=== PATIENT | female | born 1940 | race African-American/Black ===

== ENCOUNTER 2017-06-21 07:43 | Emergency (ER) | payer MEDICARE, MEDICAID ==
[~2017-06-21] VITALS: Ht 165.1 cm; Wt 93.0 kg
[~2017-06-21 07:43] MED LIST: AMLO10TA80 PO; FURO40TA5 PO; METF500T4 PO; POTA10TA15 PO; ROSU5TAB PO
[2017-06-21 09:20] LABS: BASOPHILS % 1.4 % (0.0-2.0); EOSINOPHILS % 4.9 % (0.0-5.0); HEMATOCRIT. 39.4 % (36.0-48.0); HEMOGLOBIN. 13.1 g/dL (12.0-16.0); LYMPHOCYTES % 47.1 % (20.0-50.0); MEAN CORPUSCULAR HEMOGLOBIN 31.6 pg (28.0-32.0); MEAN CORPUSCULAR VOLUME 95.2 fL (81.0-99.0); MONOCYTES % 7.6 % (2.0-8.0); PLATELET 232 x1000/uL (130-400); RED BLOOD CELL COUNT 4.13 mill/uL (4.2-5.4)
[2017-06-21 09:23] LABS: CHLORIDE 104 mEq/L (98-107); PROTHROMBIN TIME 10.7 sec (9.4-11.6)
[2017-06-21 09:30] LABS: CARBON DIOXIDE 30 mEq/L (21-32)
[2017-06-21] MEDS ORDERED: ONDANSETRON 4MG ODT PO PRN (11:45)
[2017-06-21] MEDS ORDERED: MORPHINE SULFATE 4 MG/ML CPJ (NOT FOR IM USE) IV PRN (11:45)
[2017-06-21] MEDS ORDERED: ASPIRIN 325MG EC TABLET PO ONE (11:45)
[2017-06-21 12:52] VITALS: BP 144/77
== END 2017-06-21 13:06 | disposition home or self-care (01) ==
LOC: ER 09:24
DX: M54.10 Radiculopathy, site unspecified (principal); R53.1 Weakness; I10 Essential (primary) hypertension; E11.9 Type 2 diabetes mellitus without complications; E78.00 Pure hypercholesterolemia, unspecified; Z86.73 Personal history of transient ischemic attack (TIA), and cerebral infarction without residual deficits
CPT/HCPCS: 36415; 70450; 80053; 85025; 85610; 93005; 96374; 99285; J2270; Q0162

== ENCOUNTER 2018-09-02 06:40 | Inpatient (IN) | payer MEDICARE, MEDICAID ==
[~2018-09-02] VITALS: Ht 165.1 cm; Wt 94.3 kg
[~2018-09-02 06:40] MED LIST changes: +METF-414 PO; -METF500T4 PO
[2018-09-02] MEDS ORDERED: MORPHINE SULFATE 4 MG/ML CPJ (NOT FOR IM USE) IV STA (08:40)
[2018-09-02] MEDS ORDERED: ONDANSETRON HCL 4MG/2ML INJ IV STA (08:40)
[2018-09-02] MEDS ORDERED: ASPIRIN 81MG TABLET PO ONE (08:45)
[2018-09-02 09:21] LABS: BASOPHILS % 1.2 % (0.0-2.0); EOSINOPHILS % 2.1 % (0.0-5.0); HEMATOCRIT. 38.2 % (36.0-48.0); HEMOGLOBIN. 12.6 g/dL (12.0-16.0); LYMPHOCYTES % 35.5 % (20.0-50.0); MEAN CORPUSCULAR VOLUME 97.1 fL (81.0-99.0); MEAN PLATELET VOLUME 8.3 fl (7.4-10.4); MONOCYTES % 8.6 % (2.0-8.0); NEUTROPHILS % 52.6 % (40.0-76.0); PLATELET 226 x1000/uL (130-400); RED BLOOD CELL COUNT 3.94 mill/uL (4.2-5.4); RED CELL DISTRIBUTION WIDTH 13.9 % (11.6-14.6)
[2018-09-02 09:27] LABS: CHLORIDE 103 mEq/L (98-107)
[2018-09-02 09:30] LABS: PARTIAL THROMBOPLASTIN TIME 24.3 sec (23.4-31.0); PROTHROMBIN TIME 10.4 sec (9.1-11.1)
[2018-09-02 09:31] LABS: CLARITY URINE CLEAR (CLEAR); COLOR URINE YELLOW (YELLOW); KETONES URINE NEGATIVE (NEGATIVE); LEUKOCYTE ESTERASE URINE NEGATIVE (NEGATIVE); NITRITE URINE NEGATIVE (NEGATIVE); OCCULT BLOOD URINE NEGATIVE (NEGATIVE); PROTEIN URINE NEGATIVE (NEGATIVE); SPECIFIC GRAVITY URINE 1.012 (1.005-1.030); UROBILINOGEN URINE 0.2 E.U./dL (0.2-1.0)
[2018-09-02] MEDS ORDERED: CLONIDINE 0.1MG TABLET PO PRN (13:30)
[2018-09-02] MEDS ORDERED: ONDANSETRON HCL 4MG/2ML INJ IV PRN (13:30)
[2018-09-02 15:46] VITALS: BP 116/56
[2018-09-02] MEDS ORDERED: MORPHINE SULFATE 4 MG/ML CPJ (NOT FOR IM USE) IV PRN (16:15)
[2018-09-02] MEDS: METFORMIN HCL 500MG TABLET PO SCH (17:31)
[2018-09-02] MEDS ORDERED: DEXTROSE 50% WATER 50ML SYRINGE IV PRN (18:30)
[2018-09-02] MEDS ORDERED: ATEN50TA MT (19:41)
[2018-09-02] MEDS ORDERED: NAPR-681 MT (19:41)
[2018-09-02] MEDS ORDERED: HYDR-4001 PO (19:41)
[2018-09-02 20:00] VITALS: BP 120/60
[2018-09-02] MEDS: INSULIN LISPRO 100 UNITS/ML SUBCUT SCH (21:00)
[2018-09-02] MEDS: BLOOD SUGAR DIAGNOSTIC STRIP TEST SCH (21:00)
[2018-09-02] MEDS: ATORVASTATIN CALCIUM 20MG TABLET PO SCH (21:27)
[2018-09-02] MEDS: ENOXAPARIN 30MG/0.3ML SYR SUBCUT SCH (21:28)
[2018-09-03] VITALS: BP 97/57
[2018-09-03 04:00] VITALS: BP 111/51
[2018-09-03] MEDS: PANTOPRAZOLE 40MG DR TABLET PO SCH (05:40)
[2018-09-03] MEDS: BLOOD SUGAR DIAGNOSTIC STRIP TEST SCH ×4 (05:41→21:31)
[2018-09-03] MEDS: INSULIN LISPRO 100 UNITS/ML SUBCUT SCH ×4 (05:41→21:00)
[2018-09-03 06:09] LABS: BASOPHILS % 1.3 % (0.0-2.0); EOSINOPHILS % 2.7 % (0.0-5.0); HEMATOCRIT. 38.2 % (36.0-48.0); HEMOGLOBIN. 12.8 g/dL (12.0-16.0); LYMPHOCYTES % 45.6 % (20.0-50.0); MEAN CORPUSCULAR HEMOGLOBIN 32.8 pg (28.0-32.0); MEAN CORPUSCULAR VOLUME 97.9 fL (81.0-99.0); MEAN PLATELET VOLUME 8.5 fl (7.4-10.4); MONOCYTES % 7.3 % (2.0-8.0); NEUTROPHILS % 43.1 % (40.0-76.0); PLATELET 224 x1000/uL (130-400)
[2018-09-03 06:20] LABS: CHLORIDE 102 mEq/L (98-107)
[2018-09-03 06:28] LABS: HDL CHOLESTEROL 46 mg/dL (40-59); LDL CHOLESTEROL 125 mg/dL (5-100)
[2018-09-03] MEDS: METFORMIN HCL 500MG TABLET PO SCH ×2 (07:40→16:45)
[2018-09-03 08:00] VITALS: BP 108/58
[2018-09-03] MEDS ORDERED: AMLODIPINE 10MG TABLET PO SCH (09:00)
[2018-09-03] MEDS: ATENOLOL 50 MG TABLET PO SCH (09:08)
[2018-09-03] MEDS: ENOXAPARIN 30MG/0.3ML SYR SUBCUT SCH ×2 (09:08→21:26)
[2018-09-03] MEDS: AMLODIPINE 10MG TABLET PO SCH (09:08)
[2018-09-03] MEDS: DOCUSATE SODIUM 250MG CAPSULE PO SCH (09:15)
[2018-09-03] MEDS ORDERED: REGADENOSON 0.4 MG/5 ML IV SCH (11:45)
[2018-09-03] MEDS: ACETAMINOPHEN 325MG TABLET PO PRN (11:53)
[2018-09-03 12:00] VITALS: BP 127/56
[2018-09-03 16:00] VITALS: BP 133/64
[2018-09-03] MEDS ORDERED: METFORMIN HCL 500MG TABLET PO SCH (17:15)
[2018-09-03 20:00] VITALS: BP 131/68
[2018-09-03] MEDS: ATORVASTATIN CALCIUM 20MG TABLET PO SCH (21:26)
[2018-09-04] VITALS: BP 123/60
[2018-09-04 04:00] VITALS: BP 94/64
[2018-09-04 04:57] LABS: *AMPHETAMINES SCREEN URINE NEGATIVE (NEGATIVE); *BARBITURATES SCREEN URINE NEGATIVE (NEGATIVE); *BENZODIAZEPINES SCREEN URINE NEGATIVE (NEGATIVE); *COCAINE SCREEN URINE NEGATIVE (NEGATIVE); METHADONE URINE SCREEN NEGATIVE (NEGATIVE); OPIATES URINE SCREEN NEGATIVE (NEGATIVE)
[2018-09-04 04:58] LABS: CANNABINOID URINE SCREEN NEGATIVE (NEGATIVE); PHENCYCLIDINE URINE SCREEN NEGATIVE (NEGATIVE)
[2018-09-04] MEDS: BLOOD SUGAR DIAGNOSTIC STRIP TEST SCH ×2 (05:39→11:45)
[2018-09-04] MEDS: INSULIN LISPRO 100 UNITS/ML SUBCUT SCH ×2 (05:39→12:20)
[2018-09-04] MEDS: PANTOPRAZOLE 40MG DR TABLET PO SCH (05:40)
[2018-09-04 06:25] LABS: CHLORIDE 103 mEq/L (98-107)
[2018-09-04 06:31] LABS: BASOPHILS % 1.2 % (0.0-2.0); EOSINOPHILS % 2.9 % (0.0-5.0); HEMATOCRIT. 38.6 % (36.0-48.0); HEMOGLOBIN. 12.9 g/dL (12.0-16.0); LYMPHOCYTES % 39.3 % (20.0-50.0); MEAN CORPUSCULAR HEMOGLOBIN 32.3 pg (28.0-32.0); MEAN PLATELET VOLUME 8.7 fl (7.4-10.4); MONOCYTES % 7.5 % (2.0-8.0); NEUTROPHILS % 49.1 % (40.0-76.0); PLATELET 231 x1000/uL (130-400); RED BLOOD CELL COUNT 3.98 mill/uL (4.2-5.4); RED CELL DISTRIBUTION WIDTH 13.4 % (11.6-14.6)
[2018-09-04] MEDS: METFORMIN HCL 500MG TABLET PO SCH (07:15)
[2018-09-04 08:00] VITALS: BP 126/61
[2018-09-04] MEDS: AMLODIPINE 10MG TABLET PO SCH (08:20)
[2018-09-04] MEDS: ATENOLOL 50 MG TABLET PO SCH (08:21)
[2018-09-04] MEDS: DOCUSATE SODIUM 250MG CAPSULE PO SCH (08:32)
[2018-09-04] MEDS: ENOXAPARIN 30MG/0.3ML SYR SUBCUT SCH (08:32)
[2018-09-04] MEDS ORDERED: LACTULOSE 20G/30ML UDC PO SCH (09:00)
[2018-09-04] MEDS ORDERED: REGADENOSON 0.4 MG/5 ML IV ONE (09:51)
[2018-09-04 12:00] VITALS: BP 118/55
[2018-09-04] MEDS: ACETAMINOPHEN 325MG TABLET PO PRN (12:20)
[2018-09-04 12:55] VITALS: BP 126/61
== END 2018-09-04 13:30 | disposition home or self-care (01) | DRG 391 ==
LOC: ER 11:14 → EDBEDREQ 13:33 → ENRESERV 14:08 → 5WST 15:24
PROVIDERS: ADMIT Internal Medicine Geriatric Medicine; ATTEND Internal Medicine Geriatric Medicine
DX: K21.9 Gastro-esophageal reflux disease without esophagitis (principal); J98.51 Mediastinitis; I69.354 Hemiplegia and hemiparesis following cerebral infarction affecting left non-dominant side; E03.9 Hypothyroidism, unspecified; E78.00 Pure hypercholesterolemia, unspecified; I10 Essential (primary) hypertension; I49.1 Atrial premature depolarization; E11.69 Type 2 diabetes mellitus with other specified complication; J44.9 Chronic obstructive pulmonary disease, unspecified; M19.90 Unspecified osteoarthritis, unspecified site; M48.02 Spinal stenosis, cervical region; M54.12 Radiculopathy, cervical region; K59.00 Constipation, unspecified; Z90.49 Acquired absence of other specified parts of digestive tract; Z79.84 Long term (current) use of oral hypoglycemic drugs; Z79.899 Other long term (current) drug therapy; Z82.49 Family history of ischemic heart disease and other diseases of the circulatory system; E78.5 Hyperlipidemia, unspecified; F41.1 Generalized anxiety disorder
CPT/HCPCS: 36415; 71045; 78452; 78582; 80048; 80061; 80305; 82962; 83036; 83735; 83880; 84484; 93005; 93017; 93306; 93970; 96374; 97162; 97165; 99285; A9500; A9558; J1650; J1815; J2270; J2405; J2785

== ENCOUNTER → 2019-01-24 | Outpatient (CLI) | payer MEDICARE, MEDICAID ==
[~2019-01-24] MED LIST changes: +ATEN50TA MT; +HYDR-4001 PO; +NAPR-681 MT; -ROSU5TAB PO
== END | disposition home or self-care (01) ==
LOC: RAD 13:27
PROVIDERS: ATTEND Internal Medicine Geriatric Medicine
DX: M79.605 Pain in left leg (principal); R60.9 Edema, unspecified
CPT/HCPCS: 93970

== ENCOUNTER 2021-06-28 10:24 | Inpatient (IN) | payer MEDICARE, MEDICAID ==
[~2021-06-28] VITALS: Ht 165.1 cm; Wt 96.6 kg
[~2021-06-28 10:24] MED LIST changes: +TRANEXAMIC ACID 1,000 MG in SODIUM CHLORIDE 0.9% 100 ML IV NR
[2021-06-28] MEDS ORDERED: EPINEPHRINE 1:1000 1 MG/ML AMP ONE (10:54)
[2021-06-28] MEDS ORDERED: KETOROLAC 30MG/ML VIAL ONE ×2 (10:54→14:55)
[2021-06-28] MEDS ORDERED: MORPHINE SULFATE 10 MG/ML CPJ ONE (10:54)
[2021-06-28] MEDS ORDERED: ROPIVACAINE HCL 10MG/ML 20 ML VIAL EPI ONE (10:54)
[2021-06-28] MEDS ORDERED: VANCOMYCIN HCL 1 GM/VIAL ONE (10:55)
[2021-06-28] MEDS ORDERED: POLYMYXIN B SULFATE 500000 UNITS/VIAL ONE (10:55)
[2021-06-28] MEDS ORDERED: MONT10TA32 PO (13:07)
[2021-06-28] MEDS ORDERED: TOPUD PO (13:07)
[2021-06-28] MEDS ORDERED: ATROV INH (13:07)
[2021-06-28] MEDS ORDERED: MIDAZOLAM HCL 2 MG/2 ML VIAL ONE (13:11)
[2021-06-28] MEDS ORDERED: PROPOFOL 10MG/ML 100ML 100 ML IV ONE (13:22)
[2021-06-28 13:33] LABS: CLARITY URINE CLEAR (CLEAR); COLOR URINE YELLOW (YELLOW); KETONES URINE NEGATIVE (NEGATIVE); LEUKOCYTE ESTERASE URINE NEGATIVE (NEGATIVE); NITRITE URINE NEGATIVE (NEGATIVE); OCCULT BLOOD URINE NEGATIVE (NEGATIVE); PH URINE 7.5 (4.5-8.0); PROTEIN URINE NEGATIVE (NEGATIVE); SPECIFIC GRAVITY URINE 1.014 (1.005-1.030); UROBILINOGEN URINE 0.2 E.U./dL (0.2-1.0)
[2021-06-28] MEDS ORDERED: DEXAMETHASONE 4MG/ML 1ML VIAL ONE (14:56)
[2021-06-28] MEDS ORDERED: ONDANSETRON HCL 4MG/2ML INJ ONE (14:56)
[2021-06-28] MEDS ORDERED: FENTANYL CITRATE/PF 50MCG/ML 2ML VIAL ONE (15:01)
[2021-06-28] MEDS ORDERED: CEFAZOLIN 1000MG PREMIX 50 ML IV SCH (15:15)
[2021-06-28] MEDS ORDERED: ONDANSETRON HCL 4MG/2ML INJ IV PRN ×2 (15:15→15:30)
[2021-06-28] MEDS ORDERED: HYDROCODONE/ACETAMINOPHEN 5/325MG TABLET PO PRN (15:15)
[2021-06-28] MEDS ORDERED: HYDROMORPHONE HCL/PF 2MG/ML CPJ IV PRN (15:30)
[2021-06-28] MEDS ORDERED: FENTANYL CITRATE/PF 50MCG/ML 2ML VIAL IV PRN (15:30)
[2021-06-28] MEDS ORDERED: NALOXONE HCL 0.4MG/ML VIAL IV PRN (15:30)
[2021-06-28 17:00] VITALS: BP 146/65
[2021-06-28] MEDS: KETOROLAC 30MG/ML VIAL IV PRN (17:11)
[2021-06-28 17:30] VITALS: BP 145/65
[2021-06-28] MEDS ORDERED: ASPI-986 PO (18:00)
[2021-06-28] MEDS: SENNOSIDES/DOCUSATE SOD 8.6/50MG TABLET PO SCH (19:15)
[2021-06-28 20:00] VITALS: BP 126/70
[2021-06-28] MEDS: HYDROCODONE/ACETAMINOPHEN 10/325MG TABLET PO PRN (21:21)
[2021-06-28] MEDS: CEFAZOLIN 1000MG PREMIX 50 ML IV SCH (21:24)
[2021-06-29] VITALS: BP 112/52
[2021-06-29] MEDS: KETOROLAC 30MG/ML VIAL IV PRN ×2 (00:13→09:06)
[2021-06-29 04:00] VITALS: BP 131/62
[2021-06-29] MEDS: CEFAZOLIN 1000MG PREMIX 50 ML IV SCH ×3 (04:37→22:30)
[2021-06-29] MEDS: HYDROCODONE/ACETAMINOPHEN 10/325MG TABLET PO PRN ×3 (04:44→21:15)
[2021-06-29 07:27] LABS: BASOPHILS % 0.2 % (0.0-2.0); HEMATOCRIT. 33.3 % (36.0-48.0); HEMOGLOBIN. 11.1 g/dL (12.0-16.0); LYMPHOCYTES % 12.2 % (20.0-50.0); MEAN CORPUSCULAR HEMOGLOBIN 32.5 pg (28.0-32.0); MEAN CORPUSCULAR VOLUME 97.5 fL (81.0-99.0); MEAN PLATELET VOLUME 9.1 fl (7.4-10.4); MONOCYTES % 5.4 % (2.0-8.0); NEUTROPHILS % 82.2 % (40.0-76.0); PLATELET 223 x1000/uL (130-400); RED BLOOD CELL COUNT 3.42 mill/uL (4.2-5.4); RED CELL DISTRIBUTION WIDTH 13.9 % (11.6-14.6)
[2021-06-29 08:00] VITALS: BP 123/62
[2021-06-29 08:06] LABS: CHLORIDE 106 mEq/L (98-107)
[2021-06-29] MEDS ORDERED: ATENOLOL 100 MG TABLET PO SCH (09:00)
[2021-06-29] MEDS ORDERED: ATENOLOL 50 MG TABLET PO SCH (09:00)
[2021-06-29] MEDS: FUROSEMIDE 40MG TABLET PO SCH (09:05)
[2021-06-29] MEDS: SENNOSIDES/DOCUSATE SOD 8.6/50MG TABLET PO SCH ×2 (09:05→17:40)
[2021-06-29] MEDS: METFORMIN HCL 500MG TABLET PO SCH (09:44)
[2021-06-29] MEDS: ATENOLOL 50 MG TABLET PO SCH (09:44)
[2021-06-29 12:00] VITALS: BP 109/52
[2021-06-29 16:00] VITALS: BP 102/49
[2021-06-29 20:00] VITALS: BP 127/61
[2021-06-29] MEDS: ASPIRIN 81MG TABLET PO SCH (21:06)
[2021-06-30] VITALS: BP 109/64
[2021-06-30] MEDS: CEFAZOLIN 1000MG PREMIX 50 ML IV SCH ×3 (03:28→21:15)
[2021-06-30 04:00] VITALS: BP 152/89
[2021-06-30] MEDS: HYDROCODONE/ACETAMINOPHEN 10/325MG TABLET PO PRN ×4 (05:34→21:16)
[2021-06-30 08:00] VITALS: BP 106/53
[2021-06-30] MEDS: ASPIRIN 81MG TABLET PO SCH ×2 (08:43→21:15)
[2021-06-30] MEDS: ATENOLOL 50 MG TABLET PO SCH (08:44)
[2021-06-30] MEDS: METFORMIN HCL 500MG TABLET PO SCH (08:44)
[2021-06-30] MEDS: SENNOSIDES/DOCUSATE SOD 8.6/50MG TABLET PO SCH ×2 (08:44→16:38)
[2021-06-30] MEDS: FUROSEMIDE 40MG TABLET PO SCH (08:44)
[2021-06-30 12:00] VITALS: BP 141/59
[2021-06-30 16:00] VITALS: BP 138/58
[2021-06-30 20:00] VITALS: BP 129/63
[2021-07-01] VITALS: BP 88/55
[2021-07-01] MEDS: HYDROCODONE/ACETAMINOPHEN 10/325MG TABLET PO PRN ×4 (03:48→21:32)
[2021-07-01 04:00] VITALS: BP 103/42
[2021-07-01] MEDS ORDERED: *PATIENT'S OWN MEDICATION STORAGE XX SCH (05:30)
[2021-07-01 08:00] VITALS: BP 130/64
[2021-07-01] MEDS: METFORMIN HCL 500MG TABLET PO SCH (09:06)
[2021-07-01] MEDS: SENNOSIDES/DOCUSATE SOD 8.6/50MG TABLET PO SCH ×2 (09:06→17:23)
[2021-07-01] MEDS: ASPIRIN 81MG TABLET PO SCH ×2 (09:06→21:31)
[2021-07-01] MEDS: ATENOLOL 50 MG TABLET PO SCH (09:06)
[2021-07-01] MEDS: FUROSEMIDE 40MG TABLET PO SCH (09:06)
[2021-07-01 12:00] VITALS: BP 128/54
[2021-07-01 16:00] VITALS: BP 144/62
[2021-07-01 20:00] VITALS: BP 121/55
[2021-07-02] VITALS: BP 105/66
[2021-07-02] MEDS: HYDROCODONE/ACETAMINOPHEN 10/325MG TABLET PO PRN ×3 (03:58→20:49)
[2021-07-02 04:00] VITALS: BP 106/63
[2021-07-02 08:00] VITALS: BP 99/57
[2021-07-02] MEDS: FUROSEMIDE 40MG TABLET PO SCH (08:34)
[2021-07-02] MEDS: ASPIRIN 81MG TABLET PO SCH ×2 (08:34→20:47)
[2021-07-02] MEDS: METFORMIN HCL 500MG TABLET PO SCH (08:35)
[2021-07-02] MEDS: ATENOLOL 50 MG TABLET PO SCH (08:35)
[2021-07-02] MEDS: SENNOSIDES/DOCUSATE SOD 8.6/50MG TABLET PO SCH ×2 (08:35→16:06)
[2021-07-02 12:00] VITALS: BP 128/54
[2021-07-02 16:00] VITALS: BP 138/63
[2021-07-02 20:00] VITALS: BP 102/59
[2021-07-03] VITALS: BP 111/49
[2021-07-03 04:10] VITALS: BP 135/77
[2021-07-03 08:00] VITALS: BP 134/60
[2021-07-03] MEDS: ASPIRIN 81MG TABLET PO SCH ×2 (10:07→21:15)
[2021-07-03] MEDS: SENNOSIDES/DOCUSATE SOD 8.6/50MG TABLET PO SCH ×2 (10:07→17:52)
[2021-07-03] MEDS: FUROSEMIDE 40MG TABLET PO SCH (10:08)
[2021-07-03] MEDS: ATENOLOL 50 MG TABLET PO SCH (10:08)
[2021-07-03] MEDS: METFORMIN HCL 500MG TABLET PO SCH (10:09)
[2021-07-03] MEDS: HYDROCODONE/ACETAMINOPHEN 10/325MG TABLET PO PRN ×2 (10:10→21:15)
[2021-07-03 12:00] VITALS: BP 123/58
[2021-07-03 20:00] VITALS: BP 128/55
[2021-07-03] MEDS ORDERED: HYDROCODONE/ACETAMINOPHEN 10/325MG TABLET PO PRN (20:30)
[2021-07-04] VITALS: BP 114/57
[2021-07-04 04:00] VITALS: BP 149/72
[2021-07-04] MEDS: HYDROCODONE/ACETAMINOPHEN 10/325MG TABLET PO PRN (04:17)
[2021-07-04 08:00] VITALS: BP 115/60
[2021-07-04] MEDS: ASPIRIN 81MG TABLET PO SCH (09:18)
[2021-07-04] MEDS: FUROSEMIDE 40MG TABLET PO SCH (09:18)
[2021-07-04] MEDS: METFORMIN HCL 500MG TABLET PO SCH (09:18)
[2021-07-04] MEDS: ATENOLOL 50 MG TABLET PO SCH (09:19)
[2021-07-04] MEDS: SENNOSIDES/DOCUSATE SOD 8.6/50MG TABLET PO SCH (09:19)
[2021-07-04 12:00] VITALS: BP 128/52
[2021-07-04 12:12] VITALS: BP 118/60
== END 2021-07-04 14:29 | disposition home health service (06) | DRG 470 ==
LOC: OR 10:24 → 6EST 17:55
PROC: 0SRD0J9 Replacement of Left Knee Joint with Synthetic Substitute, Cemented, Open Approach (ICD-10-PCS; principal; 2021-06-28)
DX: M17.12 Unilateral primary osteoarthritis, left knee (principal); G89.29 Other chronic pain; I10 Essential (primary) hypertension; E78.5 Hyperlipidemia, unspecified; E11.59 Type 2 diabetes mellitus with other circulatory complications; I49.9 Cardiac arrhythmia, unspecified; M48.07 Spinal stenosis, lumbosacral region; Z20.828 Contact with and (suspected) exposure to other viral communicable diseases; M54.17 Radiculopathy, lumbosacral region; M75.02 Adhesive capsulitis of left shoulder
CPT/HCPCS: 36415; 71045; 73562; 80048; 80053; 81003; 82962; 85025; 86850; 86900; 86920; 87426; 88305; 88311; 93005; 97110; 97116; 97162; 97166; 97530; C1713; C1776; C1893; J0690; J1100; J1885; J2250; J2270; J2405; J2704; J2795; J3010; J3370; J3490; J7050; L1830

== ENCOUNTER → 2021-07-21 | Outpatient (CLI) | payer MEDICARE, MEDICAID ==
[~2021-07-21] MED LIST changes: +ASPI-986 PO; +ATROV INH; +MONT10TA32 PO; +TOPUD PO; -TRANEXAMIC ACID 1,000 MG in SODIUM CHLORIDE 0.9% 100 ML IV NR
== END | disposition home or self-care (01) ==
LOC: RAD 11:31
PROVIDERS: ATTEND Internal Medicine Geriatric Medicine
DX: R22.43 Localized swelling, mass and lump, lower limb, bilateral (principal)
CPT/HCPCS: 93970

== ENCOUNTER 2022-01-22 13:27 | Inpatient (IN) | payer MEDICARE, MEDICAID ==
[~2022-01-22] VITALS: Ht 165.1 cm; Wt 88.7 kg
[2022-01-22 14:51] LABS: CHLORIDE 105 mEq/L (98-107)
[2022-01-22 14:57] LABS: BASOPHILS % 1.4 % (0.0-2.0); EOSINOPHILS % 1.3 % (0.0-5.0); HEMATOCRIT. 37.5 % (36.0-48.0); HEMOGLOBIN. 12.5 g/dL (12.0-16.0); LYMPHOCYTES % 34.7 % (20.0-50.0); MEAN CORPUSCULAR HEMOGLOBIN 31.8 pg (28.0-32.0); MEAN CORPUSCULAR VOLUME 95.6 fL (81.0-99.0); MEAN PLATELET VOLUME 8.6 fl (7.4-10.4); MONOCYTES % 7.3 % (2.0-8.0); NEUTROPHILS % 55.3 % (40.0-76.0); PLATELET 235 x1000/uL (130-400); RED BLOOD CELL COUNT 3.92 mill/uL (4.2-5.4); RED CELL DISTRIBUTION WIDTH 14.2 % (11.6-14.6)
[2022-01-22] MEDS ORDERED: MORPHINE SULFATE 2 MG/ML CPJ (NOT FOR IM USE) IV ONE (16:45)
[2022-01-22] MEDS ORDERED: ASPIRIN 325MG EC TABLET PO ONE (16:45)
[2022-01-22] MEDS ORDERED: ZOLPIDEM TARTRATE 5MG TABLET PO PRN (21:30)
[2022-01-22] MEDS ORDERED: ACETAMINOPHEN 325MG TABLET PO PRN (21:30)
[2022-01-22] MEDS ORDERED: NALOXONE HCL 0.4MG/ML VIAL IV PRN (21:45)
[2022-01-22] MEDS: GABAPENTIN 100MG CAPSULE PO SCH (23:27)
[2022-01-23] VITALS: BP_SYST 127; BP_DIAS 54; BP_DIAS 84
[2022-01-23 04:00] VITALS: BP 123/66
[2022-01-23 06:46] LABS: BASOPHILS % 1.4 % (0.0-2.0); CHLORIDE 109 mEq/L (98-107); HEMOGLOBIN. 11.3 g/dL (12.0-16.0); LYMPHOCYTES % 49.8 % (20.0-50.0); MEAN CORPUSCULAR HEMOGLOBIN 32.4 pg (28.0-32.0); MEAN CORPUSCULAR VOLUME 96.9 fL (81.0-99.0); MEAN PLATELET VOLUME 8.6 fl (7.4-10.4); MONOCYTES % 7.8 % (2.0-8.0); PLATELET 219 x1000/uL (130-400)
[2022-01-23 06:52] LABS: LDL CHOLESTEROL 112 mg/dL (5-100)
[2022-01-23] MEDS: GABAPENTIN 100MG CAPSULE PO SCH ×3 (06:54→21:04)
[2022-01-23 06:55] LABS: HDL CHOLESTEROL 46 mg/dL (40-59)
[2022-01-23] MEDS: OMEPRAZOLE 20MG CAPSULE EXTENDED RELEASE PO SCH ×2 (06:55→08:27)
[2022-01-23 08:00] VITALS: BP 136/68
[2022-01-23] MEDS: DOCUSATE SODIUM 250MG CAPSULE PO SCH (08:26)
[2022-01-23] MEDS: TRAMADOL HCL/ACETAMINOPHEN 37.5/325MG TABLET PO PRN ×2 (08:27→21:08)
[2022-01-23] MEDS: AMLODIPINE 5MG TABLET PO SCH ×2 (08:27→21:04)
[2022-01-23] MEDS: ASPIRIN 325MG EC TABLET PO SCH (08:27)
[2022-01-23] MEDS: FUROSEMIDE 20MG TABLET PO SCH (08:28)
[2022-01-23] MEDS ORDERED: REGADENOSON 0.4 MG/5 ML IV NR (08:30)
[2022-01-23] MEDS ORDERED: ASPIRIN 81MG EC TABLET PO SCH (09:00)
[2022-01-23] MEDS ORDERED: ATENOLOL 50 MG TABLET PO SCH ×2 (09:00)
[2022-01-23] MEDS ORDERED: ENOXAPARIN 30MG/0.3ML SYR SUBCUT NR (11:00)
[2022-01-23 11:37] VITALS: BP 114/53
[2022-01-23] MEDS: ATENOLOL 25MG TABLET PO SCH ×2 (12:13→21:00)
[2022-01-23 13:42] LABS: CLARITY URINE CLEAR (CLEAR); COLOR URINE YELLOW (YELLOW); KETONES URINE NEGATIVE (NEGATIVE); LEUKOCYTE ESTERASE URINE NEGATIVE (NEGATIVE); NITRITE URINE NEGATIVE (NEGATIVE); OCCULT BLOOD URINE NEGATIVE (NEGATIVE); PROTEIN URINE NEGATIVE (NEGATIVE); SPECIFIC GRAVITY URINE 1.011 (1.005-1.030); UROBILINOGEN URINE 0.2 E.U./dL (0.2-1.0)
[2022-01-23 15:55] VITALS: BP 118/57
[2022-01-23] MEDS ORDERED: MONTELUKAST SODIUM 10MG TABLET PO SCH (17:00)
[2022-01-23] MEDS: METFORMIN HCL 500MG TABLET PO SCH (17:38)
[2022-01-23 20:34] VITALS: BP 120/55
[2022-01-23] MEDS ORDERED: ATORVASTATIN CALCIUM 20MG TABLET PO SCH (21:00)
[2022-01-23] MEDS: NITROGLYCERIN 0.4MG TABLET SL SL PRN ×2 (22:25→23:15)
[2022-01-24] VITALS: BP 127/64
[2022-01-24 04:00] VITALS: BP 130/59
[2022-01-24] MEDS: GABAPENTIN 100MG CAPSULE PO SCH ×2 (06:00→12:42)
[2022-01-24 07:22] LABS: BASOPHILS % 1.3 % (0.0-2.0); EOSINOPHILS % 2.7 % (0.0-5.0); HEMATOCRIT. 35.4 % (36.0-48.0); HEMOGLOBIN. 11.7 g/dL (12.0-16.0); LYMPHOCYTES % 41.3 % (20.0-50.0); MEAN CORPUSCULAR HEMOGLOBIN 32.2 pg (28.0-32.0); MEAN CORPUSCULAR VOLUME 97.2 fL (81.0-99.0); MEAN PLATELET VOLUME 8.9 fl (7.4-10.4); MONOCYTES % 7.3 % (2.0-8.0); NEUTROPHILS % 47.4 % (40.0-76.0); PLATELET 222 x1000/uL (130-400); RED BLOOD CELL COUNT 3.64 mill/uL (4.2-5.4); RED CELL DISTRIBUTION WIDTH 14.3 % (11.6-14.6)
[2022-01-24 07:39] LABS: CHLORIDE 104 mEq/L (98-107)
[2022-01-24 08:00] VITALS: BP 127/64
[2022-01-24] MEDS ORDERED: REGADENOSON 0.4 MG/5 ML IV ONE (08:53)
[2022-01-24] MEDS ORDERED: ENOXAPARIN 30MG/0.3ML SYR SUBCUT SCH (09:00)
[2022-01-24] MEDS: METFORMIN HCL 500MG TABLET PO SCH (11:51)
[2022-01-24] MEDS: DOCUSATE SODIUM 250MG CAPSULE PO SCH (11:51)
[2022-01-24] MEDS: OMEPRAZOLE 20MG CAPSULE EXTENDED RELEASE PO SCH (11:51)
[2022-01-24] MEDS: AMLODIPINE 5MG TABLET PO SCH (11:51)
[2022-01-24] MEDS: FUROSEMIDE 20MG TABLET PO SCH (11:52)
[2022-01-24] MEDS: ASPIRIN 325MG EC TABLET PO SCH (11:52)
[2022-01-24] MEDS: ATENOLOL 25MG TABLET PO SCH (11:52)
[2022-01-24 12:00] VITALS: BP 131/67
== END 2022-01-24 14:30 | disposition home or self-care (01) | DRG 281 ==
LOC: ER 13:34 → EDBEDREQ 17:59 → ENRESERV 20:12 → 8WST 21:21
PROVIDERS: ADMIT Internal Medicine Geriatric Medicine; ATTEND Internal Medicine Geriatric Medicine
DX: I21.4 Non-ST elevation (NSTEMI) myocardial infarction (principal); I47.1 Supraventricular tachycardia; I25.110 Atherosclerotic heart disease of native coronary artery with unstable angina pectoris; D64.9 Anemia, unspecified; E11.65 Type 2 diabetes mellitus with hyperglycemia; E66.01 Morbid (severe) obesity due to excess calories; E78.00 Pure hypercholesterolemia, unspecified; E78.5 Hyperlipidemia, unspecified; J45.909 Unspecified asthma, uncomplicated; M17.12 Unilateral primary osteoarthritis, left knee; M54.12 Radiculopathy, cervical region; M54.16 Radiculopathy, lumbar region; Z96.652 Presence of left artificial knee joint; Z20.822 Contact with and (suspected) exposure to COVID-19; K21.9 Gastro-esophageal reflux disease without esophagitis; I87.2 Venous insufficiency (chronic) (peripheral); I25.2 Old myocardial infarction; Z79.82 Long term (current) use of aspirin; Z79.84 Long term (current) use of oral hypoglycemic drugs; Z86.73 Personal history of transient ischemic attack (TIA), and cerebral infarction without residual deficits; Z79.899 Other long term (current) drug therapy
CPT/HCPCS: 36415; 71045; 78452; 80048; 80053; 80061; 81003; 82270; 83036; 83880; 84443; 84484; 85025; 85379; 87426; 93005; 93017; 93306; 93971; 99285; A9500; J1650; J2270; J2785

== ENCOUNTER 2022-05-11 17:04 | Emergency (ER) | payer MEDICARE, MEDICAID ==
[~2022-05-11] VITALS: Ht 165.1 cm; Wt 97.0 kg
[~2022-05-11 17:04] MED LIST changes: +MONT-39 PO; -MONT10TA32 PO
[2022-05-11 17:17] VITALS: BP 158/82
== END 2022-05-12 01:27 | disposition left against medical advice (07) ==
LOC: ER 17:04
DX: Z53.21 Procedure and treatment not carried out due to patient leaving prior to being seen by health care provider (principal)
CPT/HCPCS: 82962

== ENCOUNTER → 2023-02-24 | Day surgery (SDC) | payer MEDICARE, MEDICAID ==
[~2023-02-24] VITALS: Ht 165.1 cm; Wt 98.0 kg
[~2023-02-24] MED LIST changes: +ASPI-1497 PO; +DEXAMETHASONE 4MG/ML 1ML VIAL ONE; +FENTANYL CITRATE/PF 50MCG/ML 2ML VIAL ONE; +HYDROMORPHONE HCL/PF 2MG/ML CPJ IV PRN; +IBUPROFEN 600MG TABLET PO NR; +LABETALOL 5MG/ML SYR 20 MG/4 ML SYRINGE IV PRN; +LIDOCAINE HCL 1% 10 MG/ML 10ML VIAL ONE; +MEPERIDINE HCL/PF 25MG/ML CPJ IV PRN; +MIDAZOLAM HCL 2 MG/2 ML VIAL ONE; +ONDANSETRON HCL 4MG/2ML INJ IV PRN; +ONDANSETRON HCL 4MG/2ML INJ ONE; +PROPOFOL 200MG/20ML VIAL IV ONE; +SODIUM CHLORIDE 0.9% 1,000 ML IV SCH
[2023-02-24 07:21] LABS: CLARITY URINE CLOUDY (CLEAR); COLOR URINE YELLOW (YELLOW); KETONES URINE NEGATIVE (NEGATIVE); LEUKOCYTE ESTERASE URINE 3+ (NEGATIVE); NITRITE URINE POSITIVE (NEGATIVE); OCCULT BLOOD URINE TRACE (NEGATIVE); PH URINE 7.5 (4.5-8.0); PROTEIN URINE NEGATIVE (NEGATIVE); SPECIFIC GRAVITY URINE 1.009 (1.005-1.030); UROBILINOGEN URINE 0.2 E.U./dL (0.2-1.0)
[2023-02-24 07:26] LABS: BASOPHILS % 1.9 % (0.0-2.0); EOSINOPHILS % 3.2 % (0.0-5.0); HEMATOCRIT. 36.3 % (36.0-48.0); HEMOGLOBIN. 11.8 g/dL (12.0-16.0); LYMPHOCYTES % 37.1 % (20.0-50.0); MEAN CORPUSCULAR HEMOGLOBIN 31.6 pg (28.0-32.0); MONOCYTES % 7.3 % (2.0-8.0); NEUTROPHILS % 50.5 % (40.0-76.0); PLATELET 262 x1000/uL (130-400); RED BLOOD CELL COUNT 3.74 mill/uL (4.2-5.4); RED CELL DISTRIBUTION WIDTH 13.8 % (11.6-14.6)
[2023-02-24 07:33] LABS: UCG SCREEN NEGATIVE
[2023-02-24 07:41] LABS: PARTIAL THROMBOPLASTIN TIME 25.8 sec (23.4-31.0); PROTHROMBIN TIME 10.9 sec (9.6-11.0)
[2023-02-24 07:45] LABS: CHLORIDE 105 mEq/L (98-107)
[2023-02-24 12:07] VITALS: BP 129/76
== END | disposition home or self-care (01) ==
LOC: OR 06:38
PROVIDERS: ATTEND Obstetrics & Gynecology Obstetrics
DX: N84.0 Polyp of corpus uteri (principal); I25.10 Atherosclerotic heart disease of native coronary artery without angina pectoris; I10 Essential (primary) hypertension; E78.00 Pure hypercholesterolemia, unspecified; E11.9 Type 2 diabetes mellitus without complications; J44.9 Chronic obstructive pulmonary disease, unspecified; M81.0 Age-related osteoporosis without current pathological fracture; Z79.82 Long term (current) use of aspirin; Z79.84 Long term (current) use of oral hypoglycemic drugs; Z79.01 Long term (current) use of anticoagulants; Z79.899 Other long term (current) drug therapy; Z90.49 Acquired absence of other specified parts of digestive tract; Z98.890 Other specified postprocedural states; Z20.822 Contact with and (suspected) exposure to COVID-19
CPT/HCPCS: 36415; 58558; 80048; 81003; 81025; 85025; 85610; 85730; 87077; 87086; 87186; 87426; 88305; A4217; C9803; J1100; J2250; J2405; J2704; J3010; J3490; J8499; Z7610

== ENCOUNTER → 2025-02-18 | Outpatient (CLI) | payer MEDICARE, MEDICAID ==
[~2025-02-18] MED LIST changes: +ALBUTEROL (0.083%) 2.5MG/3ML NEB ONE; -ASPI-986 PO; -DEXAMETHASONE 4MG/ML 1ML VIAL ONE; -FENTANYL CITRATE/PF 50MCG/ML 2ML VIAL ONE; -HYDR-4001 PO; -HYDROMORPHONE HCL/PF 2MG/ML CPJ IV PRN; -IBUPROFEN 600MG TABLET PO NR; -LABETALOL 5MG/ML SYR 20 MG/4 ML SYRINGE IV PRN; -LIDOCAINE HCL 1% 10 MG/ML 10ML VIAL ONE; -MEPERIDINE HCL/PF 25MG/ML CPJ IV PRN; -MIDAZOLAM HCL 2 MG/2 ML VIAL ONE; +OMEP20TA23 PO; -ONDANSETRON HCL 4MG/2ML INJ IV PRN; -ONDANSETRON HCL 4MG/2ML INJ ONE; +POTA-205 PO; -PROPOFOL 200MG/20ML VIAL IV ONE; -SODIUM CHLORIDE 0.9% 1,000 ML IV SCH
[2025-02-18 13:36] LABS: BG BASE EXCESS 2.3 mmol/L (-2.0-3.0); BG CARBOXYHEMOGLOBIN 1.4 % (0.5-1.5); BG DEOXYHEMOGLOBIN 5.7 % (0.0-5.0); BG FRACTION INSPIRED OXYGEN 21; BG HCO3 ACT 27.2 mmol/L (21.0-28.0); BG METHEMOGLOBIN 0.3 % (0.5-1.5); BG OXYGEN SATURATION 94.2 % (94.0-98.0); BG OXYHEMOGLOBIN 92.6 % (94.0-98.0); BG PCO2 43.5 mmHg (32.0-45.0); BG PH 7.414 (7.350-7.450); BG PO2 69.8 mmHg (83.0-108.0); BG SAMPLE SITE RIGHT RADIAL; BG TOTAL HEMOGLOBIN 12.5 g/dL (12.0-16.0); BG VENT MODE ROOM AIR
== END | disposition home or self-care (01) ==
LOC: PF 10:31
PROVIDERS: ATTEND Internal Medicine Geriatric Medicine
DX: J45.909 Unspecified asthma, uncomplicated (principal); R06.09 Other forms of dyspnea; Z20.822 Contact with and (suspected) exposure to COVID-19
CPT/HCPCS: 36600; 82375; 82805; 87426; 94060; 94727; 94729

== ENCOUNTER → 2025-04-11 | Day surgery (SDC) | payer MEDICARE, MEDICAID ==
[~2025-04-11] VITALS: Ht 165.1 cm; Wt 98.4 kg
[~2025-04-11] MED LIST changes: -ALBUTEROL (0.083%) 2.5MG/3ML NEB ONE; -ATROV INH; +HEPARIN 1000 UNITS/ML 10ML ONE; +IODIXANOL 320MG/ML 100 ML BOTTLE IV ONE; +LIDOCAINE HCL 1% 20ML VIAL ONE; -NAPR-681 MT; -POTA10TA15 PO
== END | disposition home or self-care (01) ==
LOC: CCL 07:51
PROVIDERS: ATTEND Specialist
DX: R94.39 Abnormal result of other cardiovascular function study (principal); Z53.8 Procedure and treatment not carried out for other reasons; I25.110 Atherosclerotic heart disease of native coronary artery with unstable angina pectoris; I25.2 Old myocardial infarction; I10 Essential (primary) hypertension; E78.5 Hyperlipidemia, unspecified; E11.9 Type 2 diabetes mellitus without complications; Z79.82 Long term (current) use of aspirin; Z79.84 Long term (current) use of oral hypoglycemic drugs; Z79.899 Other long term (current) drug therapy; Z86.73 Personal history of transient ischemic attack (TIA), and cerebral infarction without residual deficits; Z86.79 Personal history of other diseases of the circulatory system; Z96.652 Presence of left artificial knee joint; Z98.890 Other specified postprocedural states
CPT/HCPCS: 93005; 82962; Q9967; J1644 ×2; J2003

== ENCOUNTER 2025-05-02 07:55 | Inpatient (IN) | payer MEDICARE, MEDICAID ==
[~2025-05-02] VITALS: Ht 165.1 cm; Wt 98.0 kg
[~2025-05-02 07:55] MED LIST changes: -HEPARIN 1000 UNITS/ML 10ML ONE; -IODIXANOL 320MG/ML 100 ML BOTTLE IV ONE; -LIDOCAINE HCL 1% 20ML VIAL ONE; -TOPUD PO
[2025-05-02] MEDS ORDERED: HEPARIN 1000 UNITS/ML 10ML ONE (13:05)
[2025-05-02] MEDS ORDERED: IODIXANOL 320MG/ML 100 ML BOTTLE IV ONE (13:05)
[2025-05-02] MEDS ORDERED: LIDOCAINE HCL/PF 1% 10 MG/ML 5ML VIAL ONE (13:05)
[2025-05-02] MEDS ORDERED: FENTANYL CITRATE/PF 50MCG/ML 2ML VIAL ONE (13:47)
[2025-05-02] MEDS ORDERED: MIDAZOLAM HCL 2 MG/2 ML VIAL ONE (13:47)
[2025-05-02] MEDS ORDERED: ASPIRIN 325MG TABLET ONE (14:13)
[2025-05-02] MEDS ORDERED: CLOPIDOGREL 75MG TABLET ONE (14:14)
[2025-05-02] MEDS ORDERED: ATROPINE SULFATE 1MG/10ML SYR IV PRN (14:30)
[2025-05-02] MEDS ORDERED: ONDANSETRON HCL 4MG/2ML INJ IV PRN (14:30)
[2025-05-02] MEDS ORDERED: DEXTROSE 50% WATER 50ML SYRINGE IV PRN (15:15)
[2025-05-02 16:00] VITALS: BP 143/67; PULSE 58; RESP 15; TEMP 36.5; O2SAT 96
[2025-05-02 16:11] VITALS: BP 130/65; PULSE 69; RESP 19; TEMP 37.0852
[2025-05-02] MEDS: ACETAMINOPHEN 325MG TABLET PO PRN (16:51)
[2025-05-02] MEDS: BLOOD SUGAR DIAGNOSTIC STRIP TEST SCH (17:00)
[2025-05-02] MEDS: MONTELUKAST SODIUM 10MG TABLET PO SCH (18:14)
[2025-05-02] MEDS: INSULIN LISPRO 100 UNITS/ML SUBCUT SCH (18:15)
[2025-05-02 20:00] VITALS: BP 110/89; PULSE 59; RESP 16; TEMP 36.7; O2SAT 98
[2025-05-03 00:10] VITALS: BP 133/66; PULSE 58; RESP 17; TEMP 36.6; O2SAT 98
[2025-05-03 04:00] VITALS: BP 143/63; PULSE 67; RESP 18; TEMP 36.6; O2SAT 98
[2025-05-03 07:12] LABS: BASOPHILS % 1.3 % (0.0-2.0); EOSINOPHILS % 4.8 % (0.0-5.0); HEMATOCRIT. 37.2 % (36.0-48.0); HEMOGLOBIN. 12.4 g/dL (12.0-16.0); LYMPHOCYTES % 31.2 % (20.0-50.0); MEAN PLATELET VOLUME 8.6 fl (7.4-10.4); MONOCYTES % 8.6 % (2.0-8.0); NEUTROPHILS % 54.1 % (40.0-76.0); PLATELET 226 x1000/uL (130-400); RED BLOOD CELL COUNT 3.81 mill/uL (4.2-5.4); RED CELL DISTRIBUTION WIDTH 13.9 % (11.6-14.6)
[2025-05-03 07:31] LABS: CREATININE 0.7 mg/dL (0.6-1.0); UREA NITROGEN BLOOD 10 mg/dL (9-23)
[2025-05-03 08:00] VITALS: BP 150/87; PULSE 61; RESP 16; TEMP 36.7; O2SAT 100
[2025-05-03] MEDS: FUROSEMIDE 40MG TABLET PO SCH (08:10)
[2025-05-03] MEDS: CLOPIDOGREL 75MG TABLET PO SCH (08:10)
[2025-05-03] MEDS: ATENOLOL 50 MG TABLET PO SCH (08:16)
[2025-05-03] MEDS: ASPIRIN 325MG TABLET PO SCH (09:24)
[2025-05-03 12:00] VITALS: BP 143/71; PULSE 55; RESP 17; TEMP 36.7; O2SAT 98
[2025-05-03 13:17] VITALS: BP 143/71; PULSE 58; TEMP 98; O2SAT 97
== END 2025-05-03 13:50 | disposition home or self-care (01) | DRG 322 ==
LOC: CCL 07:55 → 3WST 15:09
PROVIDERS: ADMIT Specialist; ATTEND Specialist
PROC: 027034Z Dilation of Coronary Artery, One Artery with Drug-eluting Intraluminal Device, Percutaneous Approach (ICD-10-PCS; principal; 2025-05-02)
PROC: 4A023N7 Measurement of Cardiac Sampling and Pressure, Left Heart, Percutaneous Approach (ICD-10-PCS; 2025-05-02)
PROC: B211YZZ Fluoroscopy of Multiple Coronary Arteries using Other Contrast (ICD-10-PCS; 2025-05-02)
DX: I25.10 Atherosclerotic heart disease of native coronary artery without angina pectoris (principal); I47.19 Other supraventricular tachycardia; E11.9 Type 2 diabetes mellitus without complications; E78.5 Hyperlipidemia, unspecified; G89.4 Chronic pain syndrome; I10 Essential (primary) hypertension; J44.9 Chronic obstructive pulmonary disease, unspecified; M54.40 Lumbago with sciatica, unspecified side; Z96.652 Presence of left artificial knee joint; Z79.82 Long term (current) use of aspirin; Z79.84 Long term (current) use of oral hypoglycemic drugs; Z79.899 Other long term (current) drug therapy; Z87.891 Personal history of nicotine dependence; Z88.8 Allergy status to other drugs, medicaments and biological substances; Z86.73 Personal history of transient ischemic attack (TIA), and cerebral infarction without residual deficits; Z82.49 Family history of ischemic heart disease and other diseases of the circulatory system
CPT/HCPCS: 36415; 80048; 82962; 83735; 85025; 85347; 92928; 93005; 93458; A4606; C1769; C1874; C1887; C1893; J1644; J1815; J2003; J2250; J3010; Q9967